=== PATIENT | male | born 1970 | race American Indian/Alaskan Native ===

== ENCOUNTER 2017-01-10 05:02 | Emergency (ER) | payer BC ==
[2017-01-10 05:11] VITALS: BP 127/89
--- NOTE | 2017-01-10 08:18 | Emergency Department Report ---
ED Neck Pain/Injury HPI - General Chief Complaint: Neck Pain/Injury Stated Complaint: HEADACHE,NECK PAIN,SORE THROAT Time Seen by Provider: 01/10/17 07:43 Mode of arrival: Ambulatory Limitations: No Limitations - History of Present Illness Initial Comments: This is a 46-year-old male nontoxic, well nourished in appearance, no acute signs of distress presents to the ED complaining of bilateral neck stiffness, facial sinus pain, sore throat x4 days. Patient stated about 4 days he wake up from his bed and developed bilateral neck region stiffness but denies any trauma. Then patient stated developed sore throat and facial sinus pain. Patient denies any fever, chills. Patient denies nuchal rigidity. Patient denies any sick contact. Denies nausea, vomiting, blurry vision, chest pain, shortness of breath, wheezing, headache, abdominal pain, numbness, tingling. Patient denies any allergies or past medical history. Denies hemoptysis. Denies calf pain, calf tenderness. Denies recent travels, long car rides or recent hospital stays. MD Complaint: neck pain, upper back pain, other (facial sinus ) -: Gradual, days(s) (4) Place: home Severity: moderate Severity scale (0 -10): 8 Quality: other (stiffness) Consistency: constant Improves With: none Worsens With: none Associated Symptoms: none. denies: headache, fever, numbness, tingling, weakness, vertigo, difficulty walking, swollen glands, difficulty swallowing, nausea, vomiting Treatments Prior to Arrival: none - Related Data Previous Rx's Medication Instructions Recorded Last Taken Type Amoxicillin/Potassium Clav 1 each PO BID #20 tablet 01/10/17 Unknown Rx [Augmentin 875-125 Tablet] Cyclobenzaprine [Flexeril] 10 mg PO BID PRN #10 tablet 01/10/17 Unknown Rx Nystas/Diphen/Xyl Visc/Mylanta 480 ml MM DAILY #1 udc 01/10/17 Unknown Rx [Magic Mouthwash] Allergies Allergy/AdvReac Type Severity Reaction Status Date / Time No Known Allergies Allergy Unverified 01/10/17 05:11 ED Review of Systems ROS: Stated complaint: HEADACHE,NECK PAIN,SORE THROAT Other details as noted in HPI Constitutional: denies: chills, fever Eyes: denies: eye pain, eye discharge, vision change ENT: throat pain. denies: ear pain Respiratory: denies: cough, shortness of breath, wheezing Cardiovascular: denies: chest pain, palpitations Endocrine: no symptoms reported Gastrointestinal: denies: abdominal pain, nausea, diarrhea Genitourinary: denies: urgency, dysuria Musculoskeletal: denies: back pain, joint swelling, arthralgia Skin: denies: rash, lesions Neurological: denies: headache, weakness, paresthesias Psychiatric: denies: anxiety, depression Hematological/Lymphatic: denies: easy bleeding, easy bruising ED Past Medical Hx - Past Medical History Previous Medical History?: No - Surgical History Past Surgical History?: No - Social History Smoking Status: Never Smoker Substance Use Type: Alcohol - Medications Home Medications: Home Medications Medication Instructions Recorded Confirmed Last Taken Type Amoxicillin/Potassium Clav 1 each PO BID #20 tablet 01/10/17 Unknown Rx [Augmentin 875-125 Tablet] Cyclobenzaprine [Flexeril] 10 mg PO BID PRN #10 tablet 01/10/17 Unknown Rx Nystas/Diphen/Xyl Visc/Mylanta 480 ml MM DAILY #1 udc 01/10/17 Unknown Rx [Magic Mouthwash] ED Physical Exam - General Limitations: No Limitations General appearance: alert, in no apparent distress - Head Head exam: Present: atraumatic, normocephalic, normal inspection - Eye Eye exam: Present: normal appearance, PERRL, EOMI. Absent: scleral icterus, conjunctival injection, nystagmus, periorbital swelling, periorbital tenderness Pupils: Present: normal accommodation - ENT ENT exam: Present: mucous membranes moist, TM's normal bilaterally, normal external ear exam - Expanded ENT Exam Expanded Ear exam: Present: normal external inspection Mouth exam: Present: normal external inspection, tongue normal. Absent: drooling, trismus, muffled voice, tongue elevation, laceration Teeth exam: Present: normal inspection Throat exam: Positive: tonsillar erythema, tonsillomegaly (2+), tonsillar exudate. Negative: R peritonsillar mass, L peritonsillar mass - Neck Neck exam: Present: normal inspection, full ROM. Absent: tenderness, meningismus, lymphadenopathy, thyromegaly - Respiratory Respiratory exam: Present: normal lung sounds bilaterally. Absent: respiratory distress, wheezes, rales, rhonchi, stridor, chest wall tenderness, accessory muscle use, decreased breath sounds, prolonged expiratory - Cardiovascular Cardiovascular Exam: Present: regular rate, normal rhythm, normal heart sounds. Absent: bradycardia, tachycardia, irregular rhythm, systolic murmur, diastolic murmur, rubs, gallop - GI/Abdominal GI/Abdominal exam: Present: soft, normal bowel sounds. Absent: distended, tenderness, guarding, rebound, rigid, diminished bowel sounds - Rectal Rectal exam: Present: deferred - Extremities Exam Extremities exam: Present: normal inspection, full ROM, normal capillary refill. Absent: tenderness, pedal edema, joint swelling, calf tenderness - Back Exam Back exam: Present: normal inspection, full ROM, paraspinal tenderness ( cervical region). Absent: tenderness, CVA tenderness (R), CVA tenderness (L), muscle spasm, vertebral tenderness, rash noted - Neurological Exam Neurological exam: Present: alert, oriented X3, CN II-XII intact, normal gait, reflexes normal - Expanded Neurological Exam Expanded Patient oriented to: Present: person, place, time Cranial nerves: EOM's Intact: Normal, Gag Reflex: Normal, Tongue Deviation: Normal, Nystagmus: Normal, Facial Sensation: Normal, Facial Palsy with Forehead Movement: Normal, Facial Palsy without Forehead Movement: Normal Cerebellar function: Finger to Nose: Normal, Heel to Mayers: Normal, Romberg: Normal Upper motor neuron: Shashank Neglect: Normal, Pronator Drift: Normal, Babinski Sign : Normal, Sensory Extinction: Normal Sensory exam: Upper Extremity Light Touch: Normal, Upper Extremity Pin Prick: Normal, Upper Extremity Temperature: Normal, UE 2 Point Discrimination: Normal, Lower Extremity Light Touch: Normal, Lower Extremity Pin Prick: Normal, Lower Extremity Temperature: Normal, LE 2 Point Discrimination: Normal Motor strength exam: RUE: 5, LUE: 5, RLE: 5, LLE: 5 DTR: bicep (R): 2+, bicep (L): 2+, tricep (R): 2+, tricep (L): 2+, knee (R): 2+ , knee (L): 2+, ankle (R): 2+, ankle (L): 2+ Best Eye Response (Woodland): (4) open spontaneously Best Motor Response (Woodland): (6) obeys commands Best Verbal Response (Theresa): (5) oriented Theresa Total: 15 - Psychiatric Psychiatric exam: Present: normal affect, normal mood - Skin Skin exam: Present: warm, dry, intact, normal color. Absent: rash - Other Other exam information: Negative kernig sign and brudzinski's sign. ED Course Vital Signs 01/10/17 01/10/17 05:08 08:40 Temperature 98.0 F Pulse Rate 67 Respiratory 17 18 Rate Blood Pressure 127/89 O2 Sat by Pulse 99 Oximetry - Reevaluation(s) Reevaluation #1: 01/10/17 08:22 Patient is speaking in full sentences with no signs of distress noted. ED Medical Decision Making - Medical Decision Making 46-year-old male that presents with muscle spasm of the cervical region, tonsillitis with exudate, and sinusitis. Patient is stable with vital signs stable. There is no Kernig's sign or Brudzinski sign. Patient is neurologically stable. Patient denies any sick contact. Denies history of meningitis. Patient be treated with Augmentin, Magic mouthwash, and Flexeril. Patient was instructed to follow-up with a primary care doctor in 3-5 days or if symptoms worsen and continue return to emergency room as soon as possible possible. At time time of discharge, the patient does not seem toxic or ill in appearance. No acute signs of distress noted. Patient agrees to discharge treatment plan of care. No further questions noted by the patient. Critical care attestation.: If time is entered above; I have spent that time in minutes in the direct care of this critically ill patient, excluding procedure time. ED Disposition Clinical Impression: Tonsillitis with exudate, Muscle spasm Sinusitis Qualifiers: Sinusitis location: frontal Chronicity: acute Recurrence: non-recurrent Qualified Code(s): J01.10 - Acute frontal sinusitis, unspecified Disposition: - TO HOME OR SELFCARE Is pt being admited?: No Does the pt Need Aspirin: No Condition: Stable Instructions: Cyclobenzaprine (By mouth), Amoxicillin/Clavulanate Potassium ( By mouth), Sinusitis (ED), Tonsillitis (ED), Muscle Spasm (ED) Additional Instructions: Follow-up with a primary care doctor in 3-5 days or if symptoms worsen and continue return to emergency room as soon as possible possible. TakeFlexeril as prescribed. Do not operate heavy machinery while taking Flexeril due to sedation Prescriptions: Amoxicillin/Potassium Clav [Augmentin 875-125 Tablet] 1 each PO BID #20 tablet Cyclobenzaprine [Flexeril] 10 mg PO BID PRN #10 tablet PRN Reason: Muscle Spasm Nystas/Diphen/Xyl Visc/Mylanta [Magic Mouthwash] 480 ml MM DAILY #1 udc Referrals: PRIMARY CAREMD [Primary Care Provider] - 3-5 Days EDD RESENDIZ MD [Staff Physician] - 3-5 Days [facility] [Outside] - 3-5 Days [facility] [Outside] - 3-5 Days Forms: Work/School Release Form(ED)
[2017-01-10] MEDS ORDERED: MOTRIN PO ONE (08:25)
[2017-01-10] MEDS ORDERED: LIDOCAINE VISCOUS 2% PO ONE (08:25)
== END 2017-01-10 08:41 | disposition home or self-care (01) ==
LOC: ED 05:02
DX: J01.10 Acute frontal sinusitis, unspecified (principal); J03.90 Acute tonsillitis, unspecified; M62.838 Other muscle spasm
CPT/HCPCS: 87116; 87430; 99282

== ENCOUNTER 2018-09-23 18:37 | Emergency (ER) | payer OTHER ==
[2018-09-23] MEDS ORDERED: TYLENOL PO ONE (21:20)
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
--- NOTE | 2018-09-23 22:53 | XRay Report ---
PROCEDURE: XR SPINE CERVICAL 2-3V TECHNIQUE: Frontal, lateral, odontoid and swimmer's views cervical spine HISTORY: neck pain COMPARISONS: None FINDINGS: There is mild levocurvature of the cervical spine. The vertebral heights and disc spaces are maintained. There is no plain film evidence of bony canal stenosis. There is no evidence of fracture or subluxation. The paraspinous soft tissues are unremarkable. IMPRESSION: 1. Levocurvature cervical spine. 2. No evidence of fracture or subluxation. Cervical spine fractures can be missed with plain film imaging. If there is a clinical concern for fr acture, CT imaging would be helpful. If there is no clinical concern for fracture and of the patient remains symptomatic, MRI may be helpful. This document is electronically signed by Shea Treviño MD., September 23 2018 10:51:07 PM ET
[2018-09-23 23:14] VITALS: BP 125/86
== END 2018-09-23 23:15 | disposition home or self-care (01) ==
LOC: ED 18:37
DX: S16.1XXA Strain of muscle, fascia and tendon at neck level, initial encounter (principal); S39.012A Strain of muscle, fascia and tendon of lower back, initial encounter; Z79.899 Other long term (current) drug therapy; V43.52XA Car driver injured in collision with other type car in traffic accident, initial encounter; Y93.89 Activity, other specified; Y92.488 Other paved roadways as the place of occurrence of the external cause; Y99.8 Other external cause status
CPT/HCPCS: 72040; 99283